=== PATIENT | female | born 1995 | race Caucasian/White ===

== ENCOUNTER 2023-05-21 17:37 | Emergency (ER) | payer SELFPAY ==
[2023-05-21 18:07] LABS: BILIRUBIN,URINE NEGATIVE (NEGATIVE); GLUCOSE, URINE (UA) NEGATIVE (NEGATIVE); KETONES,URINE (UA) NEGATIVE (NEGATIVE); LEUKOCYTE ESTERASE, URINE TRACE (NEGATIVE); NITRITE,URINE NEGATIVE (NEGATIVE); OCCULT BLOOD,URINE NEGATIVE (NEGATIVE); PH,URINE 7.5 PH (5.0-7.5); PROTEIN,URINE NEGATIVE (NEGATIVE); UROBILINOGEN,URINE 0.2 (NORMAL) E.U./dL (NORMAL)
[2023-05-21 18:08] LABS: CLARITY,URINE CLEAR (CLEAR)
[2023-05-21] MEDS ORDERED: KETOROLAC 30 MG/ML VIAL IVP STA (18:09)
--- NOTE | 2023-05-21 18:14 | ED Physician Documentation ---
History of Present Illness - Stated complaint Stated Complaint: ABD PX - Chief complaint Chief Complaint: Abd Pain - History obtained from History obtained from: Patient - History of Present Illness Pain level max: 9 Pain level now: 9 - Additonal information Additional information: Patient is a 28-year-old female who presents to the emergency department left pelvic/left lower quadrant abdominal pain. She states that this been ongoing for the past 1 week. She was seen at [facility], diagnosed with a UTI, states not improved after antibiotics. She took Tylenol at home without relief. She has had ovarian cyst in the past but states that this feels sharp and stabbing, they do not feel like this pain. She states that she has had some diarrhea. No fevers. No vomiting. Denies any possibility of . No vaginal bleeding or discharge. Review of Systems Constitutional: denies: Fever, Chills Respiratory: denies: Cough GI: reports: Diarrhea. 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 Psych: Depression, Anxiety - Present Medications Home Medications: Ambulatory Orders Medication Instructions Recorded Confirmed Oxycodone HCl/Acetaminophen 1 - 2 each PO Q6H PRN #14 tablet 05/21/23 [Percocet 5-325 mg Tablet] MDD 6 tabs Venlafaxine HCl [Effexor Xr] 75 mg PO DAILY 05/21/23 05/21/23 - Allergies Allergies/Adverse Reactions: Allergies Allergy/AdvReac Type Severity Reaction Status Date / Time No Known Drug Allergies Allergy Verified 05/21/23 17:43 - Living Situation Living Arrangement: reports: At home - Social History Does the pt have substance abuse?: No - Family History Family history: reports: Non contributory PD ED PE NORMAL - Vitals Vital signs reviewed: Yes - General General: Alert and oriented X 3, Well developed/nourished, Other (Tearful, appears in pain) - HEENT HEENT: Moist mucous membranes - Neck Neck: Supple, no meningeal sign - Cardiac Cardiac: RRR - Respiratory Respiratory: No respiratory distress, Clear bilaterally - Abdomen Abdomen: Soft, Other (Tender palpation diffusely across the abdomen, but mostly in the left lower quadrant. No peritoneal signs. No rebound or guarding.) - Back Back: No CVA TTP, No spinal TTP - Derm Derm: Warm and dry, No rash - Extremities Extremities: No edema, No calf tenderness / cord - Neuro Neuro: Alert and oriented X 3 - Psych Psych: Normal mood, Normal affect Results - Vitals Vitals: Vital Signs - 24 hr 05/21/23 05/21/23 05/21/23 17:41 18:38 19:40 Temperature 37.2 C Heart Rate 110 H 96 97 Respiratory 20 18 18 Rate Blood Pressure 125/80 105/65 115/73 O2 Saturation 98 98 100 05/21/23 05/21/23 21:18 21:22 Temperature Heart Rate 88 89 Respiratory 16 18 Rate Blood Pressure 112/81 H 112/81 H O2 Saturation 98 98 Oxygen O2 Source Room air - Labs Labs: Laboratory Tests 05/21/23 05/21/23 05/21/23 16:05 18:00 18:14 WBC 8.3 RBC 4.65 Hgb 14.6 Hct 42.9 MCV 92.3 MCH 31.4 H MCHC 34.0 RDW 11.5 L Plt Count 349 MPV 8.7 Neut # (Auto) 4.7 Lymph # (Auto) 2.8 [place] # (Auto) 0.6 Eos # (Auto) 0.1 Baso # (Auto) 0.1 Absolute Nucleated RBC 0.00 Nucleated RBC % 0.0 Sodium Potassium Chloride Carbon Dioxide Anion Gap BUN Creatinine Estimated GFR (MDRD) Glucose Calcium Total Bilirubin AST ALT Alkaline Phosphatase Total Protein Albumin Globulin Albumin/Globulin Ratio Lipase Urine Color YELLOW Urine Clarity CLEAR Urine pH 7.5 Ur Specific [place] 1.015 Urine Protein NEGATIVE Urine Glucose (UA) NEGATIVE Urine Ketones NEGATIVE Urine Occult Blood NEGATIVE Urine Nitrite NEGATIVE Urine Bilirubin NEGATIVE Urine Urobilinogen 0.2 (NORMAL) Ur Leukocyte Esterase TRACE H Urine RBC 0-5 Urine WBC 0-3 Ur Squamous Epith Cells MOD Squamous H Amorphous Sediment Few Urine Bacteria Few Ur Microscopic Review INDICATED Urine Culture Comments NOT INDICATED Urine HCG, Qual NEGATIVE 05/21/23 18:14 WBC RBC Hgb Hct MCV MCH MCHC RDW Plt Count MPV Neut # (Auto) Lymph # (Auto) [place] # (Auto) Eos # (Auto) Baso # (Auto) Absolute Nucleated RBC Nucleated RBC % Sodium 137 Potassium 3.7 Chloride 106 Carbon Dioxide 23 Anion Gap 8.0 BUN 9 Creatinine 0.8 Estimated GFR (MDRD) 87 L Glucose 96 Calcium 9.7 Total Bilirubin 0.3 AST 16 ALT 12 Alkaline Phosphatase 58 Total Protein 7.6 Albumin 4.7 Globulin 2.9 Albumin/Globulin Ratio 1.6 Lipase 29 Urine Color Urine Clarity Urine pH Ur Specific [place] Urine Protein Urine Glucose (UA) Urine Ketones Urine Occult Blood Urine Nitrite Urine Bilirubin Urine Urobilinogen Ur Leukocyte Esterase Urine RBC Urine WBC Ur Squamous Epith Cells Amorphous Sediment Urine Bacteria Ur Microscopic Review Urine Culture Comments Urine HCG, Qual - Rads (name of study) CT abd pelvis Relevant Findings:: Final report received, See rad report pelvis US Relevant Findings:: Final report received, See rad report PD Medical Decision Making - ED course Complexity details: reviewed results, re-evaluated patient, considered differential, d/w patient ED course: 28-year-old female with abdominal pain, has a right-sided hemorrhagic ovarian cyst. Has 2 cysts on the right ovary. Good blood flow. No evidence of torsion. Pain resolved with Dilaudid. We will place on pain medication for home. No significant lab abnormalities. No evidence of UTI. No STD exposure. We will have her follow-up with her PCP for further care. Abdomen is soft, nontender nondistended on serial exam. Patient counseled regarding signs and symptoms for which I believe and urgent re-evaluation would be necessary. Patient with good understanding of and agreement to plan and is comfortable going home at this time This document was made in part using voice recognition software. While efforts are made to proofread this document, sound alike and grammatical errors may occur. Departure - Departure Disposition: 01 Home, Self Care Clinical Impression: Hemorrhagic ovarian cyst Condition: Good Instructions: ED Cyst Ovarian Follow-Up: your,doctor in 1 week [Other] Prescriptions: Oxycodone HCl/Acetaminophen [Percocet 5-325 mg Tablet] 1 - 2 each PO Q6H PRN #14 tablet MDD 6 tabs PRN Reason: pain Comments: [facility] [place] You appear to have 2 cysts on the right ovary, 1 of which is a hemorrhagic ovarian cyst. These should both resolve on their own but your doctor may want to perform a repeat ultrasound in 4 to 6 weeks to ensure resolution. Please return if you worsen. I am prescribing a short course of narcotic pain medication for you. These are potentially dangerous and addictive medications that should be used carefully. These medications may constipate you. Take an [id number] stool softener (docusate) twice daily with plenty of water while taking these medications. If you go 24 hours without a bowel movement, take [id number] miralax, per package instructions. Do not drink or drive while taking these medications. If you received narcotic or sedating medications while in the emergency department, do not drive for 24 hours. Store this medication in a safe, secure place and out of reach of children. It is a violation of federal law to give or sell this medication to another person or to use in a manner other than prescribed. The ED will not refill narcotic prescriptions, including prescriptions lost or stolen. To dispose of unwanted medications: 1. [facility] [address] in [place] has a medication drop box. They accept prescription medications (in pill form) Monday through Monday 9:00 a.m. to 5:00 p.m. 2. [facility] [employer] accepts prescription medications (in pill form only) for disposal year round. Call for more information. 3. Contact the [facility] for the next [facility] sponsored prescription drug collection event. , [phone], or [phone]; CT Scan IMPRESSION: Mild distal colonic diverticulosis, without findings of active diverticulitis. Mild adjacent free fluid can be seen. There is a RIGHT ovarian hemorrhagic cyst seen, with adjacent free fluid. If clinically appropriate, a follow-up pelvic ultrasound could be considered for further evaluation. Forms: PCP List Discharge Date/Time: 05/21/23 21:22
[2023-05-21 18:19] LABS: BASOPHILS # (AUTO) 0.1 10^3/uL (0.0-0.1); BASOPHILS % (AUTO) 0.7 %; EOSINOPHILS # (AUTO) 0.1 10^3/uL (0.0-0.7); EOSINOPHILS % (AUTO) 1.5 %; HCT - HEMATOCRIT 42.9 % (37.0-47.0); HGB - HEMOGLOBIN 14.6 g/dL (12.0-16.0); LYMPHOCYTES # (AUTO) 2.8 10^3/uL (1.5-3.5); LYMPHOCYTES % (AUTO) 33.5 %; MEAN CORPUSCULAR HEMOGLOBIN 31.4 pg (27.0-31.0); MEAN CORPUSCULAR VOLUME 92.3 fL (81.0-99.0); MEAN PLATELET VOLUME 8.7 fL (7.9-10.8); MONOCYTES # (AUTO) 0.6 10^3/uL (0.0-1.0); MONOCYTES % (AUTO) 6.7 %; NEUTROPHILS # (AUTO) 4.7 10^3/uL (1.5-6.6); NEUTROPHILS % (AUTO) 57.4 %; PLT - PLATELET COUNT 349 10^3/uL (130-450); RED BLOOD COUNT 4.65 10^6/uL (4.20-5.40); RED CELL DISTRIBUTION WIDTH 11.5 % (12.0-15.0); WHITE BLOOD COUNT 8.3 x10^3/uL (4.8-10.8)
[2023-05-21 18:19] LABS: AMORPHOUS SEDIMENT,UR Few /LPF; BACTERIA,URINE Few /HPF (None Seen); RBC,URINE 0-5 /HPF (0-5); SQUAMOUS EPITHELIAL CELL,UR MOD Squamous (<= Few); WBC,URINE 0-3 /HPF (0-5)
[2023-05-21 18:25] LABS: HCG UR QUAL NEGATIVE
[2023-05-21 18:41] LABS: ALBUMIN 4.7 g/dL (3.2-5.5); ALBUMIN/GLOBULIN RATIO 1.6 (1.0-2.2); BILIRUBIN,TOTAL 0.3 mg/dL (0.2-1.0); CALCIUM 9.7 mg/dL (8.5-10.3); CREATININE 0.8 mg/dL (0.6-1.3); POTASSIUM 3.7 mmol/L (3.5-4.5); TOTAL PROTEIN 7.6 g/dL (6.4-8.9)
[2023-05-21] MEDS ORDERED: iohexoL-300 100 ML VIAL IVP ONE (19:44)
[2023-05-21] MEDS ORDERED: HYDROmorphone 1 MG/ML CARPUJECT IVP STA (20:05)
--- NOTE | 2023-05-21 20:07 | CT Report ---
PROCEDURE: ABDOMEN/PELVIS W INDICATIONS: LLQ abd pain x 1 week CONTRAST: 100 ml omni 300 TECHNIQUE: After the administration of IV contrast, 5 mm thick sections acquired from the diaphragms to the symp hysis. 5 mm thick coronal and sagittal reformats were acquired. For radiation dose reduction, the f ollowing was used: automated exposure control, adjustment of mA and/or kV according to patient size. COMPARISON: None. FINDINGS: Image quality: Excellent. Lung bases and heart: Unremarkable. Liver: No solid mass. Gallbladder and biliary tree: Within normal limits. Spleen: No splenomegaly. Pancreas: No pancreatic ductal dilation. Adrenals: No adrenal nodule. Kidneys and ureters: No hydronephrosis. No renal cystic lesion which requires follow up. No solid mas s. Bowel and peritoneum: Minimal distal colonic diverticulosis is seen, without gloria findings of active diverticulitis. No bowel distension. No pathologic free fluid. No significant abnormality of the appendix is seen. Lymph nodes: No central or retroperitoneal adenopathy. Vessels: No infrarenal aortic aneurysm. PELVIS Reproductive organs: There is a rim-enhancing right ovarian cyst seen that measures up to 3 cm, as on series 2 image 68 and on series 5 image 31. Adjacent free fluid can be seen. No significant left ovarian abnormality is seen. No significant uterus abnormality is seen. Bladder: No abnormal wall thickening, accounting for underdistension. Pelvic lymph nodes: No pelvic adenopathy by size criteria. Bones: No aggressive osseous abnormality. Other: No significant ventral or inguinal hernia. IMPRESSION: Mild distal colonic diverticulosis, without findings of active diverticulitis. Mild adjacent free flu id can be seen. There is a RIGHT ovarian hemorrhagic cyst seen, with adjacent free fluid. If clinically appropriate, a follow-up pelvic ultrasound could be considered for further evaluation. Reviewed by: Troy Arechiga MD on 05/21/2023 7:05 PM PAUL Approved by: Troy Arechiga MD on 05/21/2023 7:05 PM PAUL Station ID: [id number]
[2023-05-21] MEDS ORDERED: oxyCODONE 5 MG TABLET PO STA (21:01)
--- NOTE | 2023-05-21 21:09 | Ultrasound Report ---
PROCEDURE: Pelvic w/Doppler Complete INDICATIONS: pelvic pain, TECHNIQUE: Sonographic images of the pelvis were obtained. Doppler was obtained. COMPARISON: None. FINDINGS: Uterus measures 7.9 x 3.5 x 5.2 cm. Endometrium measures 6.5 cm. Right ovary measures 4.4 x 3.5 x 3.4 cm with volume 27.3 cc. There are 2 simple cysts measuring 3.7 x 2.4 x 3.1 cm and 2.4 x 1.9 x 1.6 cm . Left ovary measures 3.6 x 3.2 x 3.1 cm, volume 18.7 cc. Doppler interrogation demonstrates both art erial and venous flow to the ovaries bilaterally. IMPRESSION: Unremarkable exam. No evidence of torsion. Reviewed by: Leann Seals MD on 05/21/2023 9:07 PM PDT Approved by: Leann Seals MD on 05/21/2023 9:07 PM PDT Station ID: [id number]
[2023-05-21 21:26] VITALS: BP 112/81; O2SAT 98
== END 2023-05-21 21:22 | disposition home or self-care (01) ==
LOC: ED 17:37
DX: N83.201 Unspecified ovarian cyst, right side (principal)
CPT/HCPCS: 36415; 74177; 76856; 80053; 81001; 81025; 83690; 85025; 93975; 96374; 96375; 99283; 99284; A9270; J1170; Q9967; 81003; 87086